=== PATIENT | male | born 1935 | race African-American/Black ===

== ENCOUNTER 2021-08-07 09:02 | Emergency (ER) | payer MEDICARE, OTHER ==
[~2021-08-07] VITALS: Ht 170.2 cm; Wt 75.0 kg
[2021-08-07] MEDS ORDERED: ASPI-1497 PO (09:11)
[2021-08-07] MEDS ORDERED: AMLO5TAB88 PO (09:11)
[2021-08-07] MEDS ORDERED: ATOR20TA65 PO (09:11)
[2021-08-07] MEDS ORDERED: ASPIRIN 81MG TABLET PO ONE (09:15)
[2021-08-07] MEDS ORDERED: NITROGLYCERIN OINT 1GM/INCH UDPKT TD ONE (09:15)
[2021-08-07 10:17] LABS: BASOPHILS % 0.8 % (0.0-2.0); EOSINOPHILS % 2.9 % (0.0-5.0); HEMATOCRIT. 42.2 % (42.0-52.0); HEMOGLOBIN. 14.2 g/dL (14.0-18.0); LYMPHOCYTES % 25.6 % (20.0-50.0); MEAN CORPUSCULAR HEMOGLOBIN 28.9 pg (28.0-32.0); MEAN CORPUSCULAR VOLUME 86.1 fL (80.0-94.0); MEAN PLATELET VOLUME 6.8 fl (7.4-10.4); MONOCYTES % 6.9 % (2.0-8.0); NEUTROPHILS % 63.8 % (40.0-76.0); PLATELET 245 x1000/uL (130-400); RED CELL DISTRIBUTION WIDTH 14.2 % (11.6-14.6)
[2021-08-07 10:30] LABS: CHLORIDE 104 mEq/L (98-107)
[2021-08-07] MEDS ORDERED: HYDROCODONE/ACETAMINOPHEN 5/325MG TABLET PO ONE (13:45)
[2021-08-07] MEDS ORDERED: IOHEXOL-350 100 ML BOTTLE ONE (15:45)
[2021-08-07 16:29] VITALS: BP 109/70
== END 2021-08-07 16:31 | disposition home or self-care (01) ==
LOC: ER 09:02
DX: R07.89 Other chest pain (principal); R91.1 Solitary pulmonary nodule; E78.00 Pure hypercholesterolemia, unspecified; I10 Essential (primary) hypertension; Z98.890 Other specified postprocedural states
CPT/HCPCS: 36415; 71045; 71275; 74174; 80053; 83880; 84484; 85025; 85379; 93005; 99285; Q9967